=== PATIENT | female | born 2005 | race Caucasian/White ===

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

== ENCOUNTER 2023-08-16 16:41 | Outpatient (CLI) | payer OTHER, SELFPAY ==
--- OUTSIDE RECORDS SUMMARY | 2023-08-16 16:46 | XMS_ITS | Encounter Summary ---
Author Name Unknown Organization [place] Address [address] [place] [address]. [place] [address] Care Team Providers Care Hourly Associate Name Role Phone Marlys Avila MD Primary Care Provider Renan Miguel PA-C Unavailable + [phone] Keke Jackson OD Unavailable [phone] Reason for Visit * Reason Comments Medication Refill Encounter Details Date Type Department Care Team (Late st Contact Info) Description 01/08/2021 Refill [facility] [address] [place] [address] Renan Miguel PA-C [address] [place] [address] Medication Refill Social History Tobacco Use Types Packs/Day Years Used Date Smoking Tobacco: Never Smokeless Tobacco: Never Alcohol Use Standard Drinks/Week Comments No 0 (1 standard drink = 0.6 oz pur e alcohol) PHQ-2 Answer Date Recorded PHQ-2 Score 1 12/12/2020 Sex and Gender Information Value Date Recorded Sex Assigned at Female 03/27/2020 10:03 AM CDT Gender Identity Female 03/27/2020 10:03 AM CDT Sexual Orientation Bisexual 12/12/2020 10 :44 AM CDT Sexual Orientation Don't know 12/12/2020 10 :44 AM CDT COVID-19 Exposure Response Date Recorded In the last month, have you been in contact with someone who was confirmed or suspected to have Coronavirus / COVID-19? No / Unsure 01/02/2021 1:59 PM CDT documented as of this encounter Plan of Treatment Not on file documented as of this encounter Visit Diagnoses Diagnosis POLLY (generalized anxiety disorder) Generalized anxiety disorder documented in this encounter Additional Health Concerns Assessment Noted Time PHQ-9 Depression Total Score: 5 12/13/19 21 12:05 PM CDT documented as of this encounter Care Teams Hourly Associate Relationship Specialty Start Date End Date Marlys Avila MD PCP - General Family Practice 03/06/16 Renan Miguel PA-C [address] [address] [address] Assigned PCP 12/29/20 Keke Jackson OD [address] [facility] EFFIE MICHEL [address] Assigned Surgical Provider 06/08/21 documented as of this encounter
--- OUTSIDE RECORDS SUMMARY | 2023-08-16 16:46 | XMS_ITS | Encounter Summary ---
Author Name Unknown Organization [facility] Address [address] [place] [address] Care Team Providers Care Cost Control Supervisor Name Role Phone Marlys Avila MD Primary Care Provider Marlys Avila MD Unavailable [phone] Renan Miguel PA-C Unavailable + [phone] Keek Jackson OD Unavailable [phone] Encounter Details Date Type Department Care Team (Late st Contact Info) Description 11/11/2020 [facility] [place] [facility] Medical Advice [address] [address] Joe Roberto Social History Tobacco Use Types Packs/Day Years Used Date Smoking Tobacco: Never Smokeless Tobacco: Never Alcohol Use Standard Drinks/Week Comments No 0 (1 standard drink = 0.6 oz pur e alcohol) PHQ-2 Answer Date Recorded PHQ-2 Score 0 10/14/2020 Sex and Gender Information Value Date Recorded Sex Assigned at Female 03/27/2020 10:03 AM CDT Gender Identity Female 03/27/2020 10:03 AM CDT Sexual Orientation Bisexual 12/12/2020 10 :44 AM CDT Sexual Orientation Don't know 12/12/2020 10 :44 AM CDT documented as of this encounter Plan of Treatment Not on file documented as of this encounter Visit Diagnoses Not on filedocumented in this encounter Additional Health Concerns Assessment Noted Time PHQ-9 Depression Total Score: 3 10/15/19 21 12:09 PM CDT documented as of this encounter Care Teams Cost Control Supervisor Relationship Specialty Start Date End Date Marlys Avila MD PCP - General Family Practice 03/06/16 [place] [address] [address] [address] Assigned PCP 12/31/19 12/28/20 Renan Miguel PA-C [address] [address] [address] Assigned PCP 12/29/20 Keke Jackson OD [address] [facility] EFFIE MICHEL [address] Assigned Surgical Provider 06/08/21 documented as of this encounter
--- OUTSIDE RECORDS SUMMARY | 2023-08-16 16:46 | XMS_ITS | Encounter Summary ---
Author Name Unknown Organization [place] Address [address] [place] [address]. [place] [address] Care Team Providers Care Er Physician Name Role Phone Marlys Avila MD Primary Care Provider Marlys Avila MD Unavailable [phone] Renan Miguel PA-C Unavailable + [phone] Keke Jackson OD Unavailable [phone] Reason for Visit * Reason Onset Date Comments Medication Request 07/02/2020 Encounter Details Date Type Department Care Team (Late st Contact Info) Description 07/02/2020 [facility] Medical Advice [address] [place] [id number] Irene Shepherd PA-C Medication Request Social History Tobacco Use Types Packs/Day Years Used Date Smoking Tobacco: Never Smokeless Tobacco: Never Alcohol Use Standard Drinks/Week Comments No 0 (1 standard drink = 0.6 oz pur e alcohol) PHQ-2 Answer Date Recorded PHQ-2 Score 2 07/04/2020 Sex and Gender Information Value Date Recorded [...] or suspected to have Coronavirus / COVID-19? Yes 07/04/2020 10:09 AM PRINTED CIRCUIT BOARD PANELS DEBURRER documented as of this encounter Miscellaneous Notes * Telephone Encounter - Tequila Sweet CMA - 07/02/2020 12:17 PM PRINTED CIRCUIT BOARD PANELS DEBURRER Spoke with patient mother. Mother aware that Irene Shepherd hasn't prescribed Hydroxyzine and that the pharmacy has been notified that Renan Miguel PA-C had prescribed this medication. Patients mother will reach out to Renan Miguel PA-C. Tequila Jones MA TED CIRCUIT BOARD PANELS DEBURRER * Telephone Encounter - Dionna Fierro - 07/02/2020 11:27 AM CST Dad calling again to request hydroxyzine as patient is now out of pills. [facility] #[id number] [place]. Thank you, Dionna Fierro, [facility] TED CIRCUIT BOARD PANELS DEBURRER documented in this encounter Plan of Treatment Not on file documented as of this encounter Visit Diagnoses Not on filedocumented in this encounter Additional Health Concerns Assessment Noted Time PHQ-9 Depression Total Score: 7 06/10/20 20 10:05 AM PRINTED CIRCUIT BOARD PANELS DEBURRER documented as of this encounter Care Teams Er Physician Relationship Specialty Start Date End Date Marlys Avila MD PCP - General Family Practice 03/06/16 [place] [address] [address] [address] Assigned PCP 12/31/19 12/28/20 Renan Miguel PA-C [address] [address] [address] Assigned PCP 12/29/20 Keke Jackson OD [address] [facility] EFFIE MICHEL [address] Assigned Surgical Provider 06/08/21 documented as of this encounter
--- OUTSIDE RECORDS SUMMARY | 2023-08-16 16:46 | XMS_ITS | Encounter Summary ---
Author Name Unknown Organization [facility] Address [address] [place] [address] Care Team Providers Care Computer Applications Developer Name Role Phone Marlys Avila MD Primary Care Provider Marlys Avila MD Unavailable [phone] Renan Miguel PA-C Unavailable + [phone] Keke Jackson OD Unavailable [phone] Encounter Details Date Type Department Care Team (Late st Contact Info) Description 07/04/2020 [facility] Medical Advice [address] [address] Lu Hayward LPN Social History Tobacco Use Types Packs/Day Years [...] Coronavirus / COVID-19? Yes 07/04/2020 10:09 AM BRAKE LINING FINISHER ASBESTOS documented as of this encounter Plan of Treatment Not on file documented as of this encounter Visit Diagnoses Not on filedocumented in this encounter Additional Health Concerns Assessment Noted Time PHQ-9 Depression Total Score: 7 07/04/20 20 10:14 AM BRAKE LINING FINISHER ASBESTOS documented as of this encounter Care Teams Computer Applications Developer Relationship Specialty Start Date End Date Marlys Avila MD PCP - General Family Practice 03/06/16 [place] [address] [address] [address] Assigned PCP 12/31/19 12/28/20 Renan Miguel PA-C [address] [address] [address] Assigned PCP 12/29/20 Keke Jackson OD [address] [facility] EFFIE MICHEL [address] Assigned Surgical Provider 06/08/21 documented as of this encounter
--- OUTSIDE RECORDS SUMMARY | 2023-08-16 16:46 | XMS_ITS | Clinical Summary ---
Author Name Unknown Organization [place] Address [address] [place] [address] Care Team Providers Care Natural Resources Manager Name Role Phone Marlys Avila MD Primary Care Provider Renan Miguel PA-C Unavailable + [phone] Allergies No known active allergies Medications Medication Sig Dispensed Refills Start Date End Date Status hydrOXYzine (ATARAX) 25 MG tabletIndications: POLLY (generalized anxiety disorder) TAKE 1 TABLET(25 MG) BY MOUTH THREE TIMES DAILY NEEDED FOR ANXIETY 180 tablet 4 06/05/2021 Active ondansetron (ZOFRAN) 4 MG tabletIndications: Situational anxiety Take 1 tablet (4 mg) by mouth 3 times daily as needed for nausea 30 tablet 1 06/05/2021 Active propranolol (INDERAL) 10 MG tabletIndications: Situational anxiety Take 10-20mg approx 20-30 minutes before anticipated test or performance that may cause anxiety 30 tablet 1 06/05/2021 Active Active Problems No known active problems Immunizations Name Administration Dates Next Due COVID-19 MONOVALENT 12+ (Pfizer) 11/18/2020,10/17 HEPATITIS A (PEDS 12M-18Y) 06/05/2021,01/25/2020 HIB (PRP-T) 01/07/2006 HPV9 06/05/2021,01/02/2021,01/25/2020 Hepatitis B, Peds 06/05/2021,01/25/2020 Historical DTP/aP 04/07/2007,01/07/2006 Influenza Vaccine >6 months,quad, PF 06/05/2021 MMR 01/02/2021,01/25/2020 Meningococcal ACWY (Menactra??) 01/02/2021,03/06 Poliovirus, inactivated (IPV) 01/25/2020, 007,01/07/2006 TDAP Vaccine (Adacel) 03/06/2016 Varicella Pt Report Hx of Va ricella/Chicken Pox 07/19/2006 Family History Medical History Relation Comments Depression Maternal Grandfather Other Cancer Maternal Grandmother bladder Substance Abuse Maternal Grandmother Alcohol Depression Mother Substance Abuse Other Drugs/ alcohol Glaucoma No family hx of Macular Degeneration No family hx of Relation Status Comments Father Alive Maternal Grandfather Maternal Grandmother Alive Mother Alive Other Sister Alive Social History Tobacco Use Types Packs/Day Years Used Date Smoking Tobacco: Never Smokeless Tobacco: Never Alcohol Use Standard Drinks/Week Comments No 0 (1 standard drink = 0.6 oz pur e alcohol) PHQ-2 Answer Date Recorded PHQ-2 Score 1 06/05/2021 Adolescent Education Answer Date Record ed Getting School Help Needed Not on file 04/09 Sex and Gender Information Value Date Recorded Sex Assigned at Female 03/27/2020 10:03 AM CDT Gender Identity Female 03/27/2020 10:03 AM CDT Sexual Orientation Bisexual 12/12/2020 10 :44 AM CDT Sexual Orientation Don't know 12/12/2020 10 :44 AM CDT Last Filed Vital Signs Vital Sign Reading Time Taken Comments Blood Pressure 114/72 06/05/2021 3:09 PM SERVICE ADVOCATE CONTACT Pulse 103 06/05/2021 3:09 PM SERVICE ADVOCATE CONTACT Temperature 36.4 ??C (97.5 ??F) 06/05/2021 3:09 PM CS T Respiratory Rate 14 06/05/2021 3:09 PM SERVICE ADVOCATE CONTACT Oxygen Saturation 98% 06/05/2021 3:09 PM SERVICE ADVOCATE CONTACT Inhaled Oxygen Concentration - - Weight 75.6 kg (166 lb 9.6 oz) 06/05/2021 3:09 P M SERVICE ADVOCATE CONTACT Height 177.8 cm (5' 10) 06/05/2021 3:09 PM SERVICE ADVOCATE CONTACT Body Mass Index 23.9 06/05/2021 3:09 PM SERVICE ADVOCATE CONTACT Body Mass Index Percentile 77.06% 06/05/2021 3:0 9 PM SERVICE ADVOCATE CONTACT Growth Chart: CDC (Girls, 2- 20 Years) Plan of Treatment Health Maintenance Due Date Last Done Comments ADVANCE CARE PLANNING 2003 VARICELLA IMMUNIZATION (2 of 2 - 2-dose childhood series) 2007 07/19/2006 HIV SCREENING 12/05/2018 ANNUAL REVIEW OF HM ORDERS 02/08/2021 02/09/2020 YEARLY PREVENTIVE VISIT 02/08/2021 02/09/2020, 03/06 HEPATITIS B IMMUNIZATION (3 of 3 - 3-dose series) 07/31/2021 06/05/2021, 01/25/2020 HEPATITIS C SCREENING 12/05/2021 PHQ-2 (once per calendar year) 2022 06/05/2021, 06/05/2021, 12/12/2020, Additional history exists COVID-19 Vaccine ( - season) 2023 11/18/2020, 10/28/2020 INFLUENZA VACCINE (#1) 2023 06/05/2021 DTAP/TDAP/TD IMMUNIZATION (4 - Td or Tdap) 03/06/2026 03/06/2016, 04/07/2007, 01/07/2006 HIB IMMUNIZATION Completed 01/07/2006 IPV IMMUNIZATION Completed 01/25/2020, , 01/07/2006 MENINGITIS IMMUNIZATION Completed 01/02/2021, 03/06 HPV IMMUNIZATION Completed 06/05/2021, , 01/25/2020 Pneumococcal Vaccine: Pediatrics (0 to 5 Years) and At-Risk Patients (6 to 64 Years) Aged Out No longer eligible based on patient's age to complete this topic RSV MONOCLONAL ANTIBODY Aged Out No l onger eligible based on patient's age to complete this topic Care Teams Natural Resources Manager Relationship Specialty Start Date End Date Marlys Avila MD PCP - General Family Practice 03/06/16 Renan Miguel PA-C [address] [address] [address] Assigned PCP 12/29/20
--- OUTSIDE RECORDS SUMMARY | 2023-08-16 16:46 | XMS_ITS | Encounter Summary ---
Author Name Unknown Organization [facility] Address [address] [place] [address]. [place] [address] Care Team Providers Care Catering Truck Operator Name Role Phone Marlys Avila MD Primary Care Provider Renan Miguel PA-C Unavailable [phone] Keke Jackson OD Unavailable [phone] Reason for Visit * Reason Comments Medication Refill Encounter Details Date Type Department Care Team (Late st Contact Info) Description 08/23/2021 Refill [facility] [address] [place] [address] Renan Miguel PA-C [address] [place] [address] Medication Refill Social History Tobacco Use Types Packs/Day Years Used Date Smoking Tobacco: Never Smokeless Tobacco: Never Alcohol Use Standard Drinks/Week Comments No 0 (1 standard drink = 0.6 oz pur e alcohol) PHQ-2 Answer Date Recorded PHQ-2 Score 1 06/05/2021 Sex and Gender Information Value Date Recorded Sex Assigned at Female 03/27/2020 10:03 AM CDT Gender Identity Female 03/27/2020 10:03 AM CDT Sexual Orientation Bisexual 12/12/2020 10 :44 AM CDT Sexual Orientation Don't know 12/12/2020 10 :44 AM CDT documented as of this encounter Miscellaneous Notes * Telephone Encounter - Karishma Swain RN - 08/26/2021 9:20 AM CASH MANAGEMENT COORDINATOR Received a refill request for hydroxyzine - refills sent to the same pharmacy on 06/05/21 - should still have some. MANAGEMENT COORDINATOR documented in this encounter Plan of Treatment Not on file documented as of this encounter Visit Diagnoses Diagnosis POLLY (generalized anxiety disorder) Generalized anxiety disorder documented in this encounter Additional Health Concerns Assessment Noted Time PHQ-9 Depression Total Score: 6 06/06/20 7:02 AM CASH MANAGEMENT COORDINATOR documented as of this encounter Care Teams Catering Truck Operator Relationship Specialty Start Date End Date Marlys Avila MD PCP - General Family Practice 03/06/16 Renan Miguel PA-C [address] [address] [address] Assigned PCP 12/29/20 Keke Jackson OD [address] [facility] EFFIE MICHEL [address] Assigned Surgical Provider 06/08/21 documented as of this encounter
--- OUTSIDE RECORDS SUMMARY | 2023-08-16 16:46 | XMS_ITS | Referral Summary ---
Author Name Unknown Organization [facility] Address [address] [place] [address] Care Team Providers Care Stucco Worker Name Role Phone Marlys Avila MD Primary Care Provider Renan Miguel PA-C Unavailable + [phone] Allergies No known active allergies Medications Medication [...] Report Hx of Va ricella/Chicken Pox 07/19/2006 Social History Tobacco Use Types Packs/Day Years [...] Comments Blood Pressure 114/72 06/05/2021 3:09 PM ENROLLMENT CONSULTANT Pulse 103 06/05/2021 3:09 PM ENROLLMENT CONSULTANT Temperature 36.4 ??C (97.5 ??F) 06/05/2021 3:09 PM CS T Respiratory Rate 14 06/05/2021 3:09 PM ENROLLMENT CONSULTANT Oxygen Saturation 98% 06/05/2021 3:09 PM ENROLLMENT CONSULTANT Inhaled Oxygen Concentration - - Weight 75.6 kg (166 lb 9.6 oz) 06/05/2021 3:09 P M ENROLLMENT CONSULTANT Height 177.8 cm (5' 10) 06/05/2021 3:09 PM ENROLLMENT CONSULTANT Body Mass Index 23.9 06/05/2021 3:09 PM ENROLLMENT CONSULTANT Body Mass Index Percentile 77.06% 06/05/2021 3:0 9 PM ENROLLMENT CONSULTANT Growth Chart: CDC (Girls, 2- 20 Years) Plan of Treatment Not on file Care Teams Stucco Worker Relationship Specialty Start Date End Date Marlys Avila MD PCP - General Family Practice 03/06/16 Renan Miguel PA-C [address] [place] [address] Assigned PCP 12/29/20
--- OUTSIDE RECORDS SUMMARY | 2023-08-16 16:46 | XMS_ITS | Encounter Summary ---
Author Name Unknown Organization [facility] Address [address] [place] [address] Care Team Providers Care Afternoon Babysitter Name Role Phone Marlys Avila MD Primary Care Provider Marlys Avila MD Unavailable [phone] Renan Miguel PA-C Unavailable + [phone] Keke Jackson OD Unavailable [phone] Encounter Details Date Type Department Care Team (Late st Contact Info) Description 11/06/2020 [facility] Medical Advice [facility] [address] [place] [address] Tangela Garsia [address] [place], [place] [id number] Social History Tobacco Use Types Packs/Day Years [...] documented as of this encounter Care Teams Afternoon Babysitter Relationship Specialty Start Date End Date Marlys Avila MD PCP - General Family Practice 03/06/16 [place] [address] [address] [address] Assigned PCP 12/31/19 12/28/20 Renan Miguel PA-C [address] [address] [address] Assigned PCP 12/29/20 Keke Jackson OD [address]305 [facility] EFFIE MICHEL [address] Assigned Surgical Provider 06/08/21 documented as of this encounter
--- OUTSIDE RECORDS SUMMARY | 2023-08-16 16:46 | XMS_ITS | Encounter Summary ---
Author Name Unknown Organization [facility] Address [address] [place] [address]. [place] [address] Care Team Providers Care Landscape Supervisor Name Role Phone Marlys Avila MD Primary Care Provider Marlys Avila MD Unavailable [phone] Renan Miguel PA-C Unavailable + [phone] Keke Jackson OD Unavailable [phone] Reason for Visit * Reason Onset Date Comments Refill Request 07/01/2020 Encounter Details Date Type Department Care Team (Late st Contact Info) Description 07/01/2020 My[facility] Refill [address] [id number] Irene Shepherd PA-C Refill Request Social History Tobacco Use Types Packs/Day [...] Coronavirus / COVID-19? Yes 07/04/2020 10:09 AM SQUAD SERGEANT documented as of this encounter Plan of Treatment Not on file documented as of this encounter Visit Diagnoses Diagnosis Situational anxiety Other anxiety states documented in this encounter Additional Health Concerns Assessment Noted Time PHQ-9 Depression Total Score: 7 06/10/20 20 10:05 AM SQUAD SERGEANT documented as of this encounter Care Teams Landscape Supervisor Relationship Specialty Start Date End Date Marlys Avila MD PCP - General Family Practice 03/06/16 [place] [address] [address] [address] Assigned PCP 12/31/19 12/28/20 Renan Miguel PA-C [address] [address] [address] Assigned PCP 12/29/20 Keke Jackson OD [address] [facility] EFFIE MICHEL [address] Assigned Surgical Provider 06/08/21 documented as of this encounter
--- OUTSIDE RECORDS SUMMARY | 2023-08-16 16:47 | XMS_ITS | Encounter Summary ---
Author Name Unknown Organization [facility] Address [address] [place] [address]. [place] [address] Care Team Providers Care Beef Cattle Grazier Name Role Phone Marlys Avila MD Primary Care Provider Marlys Avila MD Unavailable Renan Miguel PA-C Unavailable [phone] Keke Jackson OD Unavailable Encounter Details Date Type Department Care Team (Late st Contact Info) Description 06/10/2020 [facility] Medical Advice [address], [address] [place] [address] Lety Stearns, [facility] [employer]CR[employer] [address] [place] [address] Social History Tobacco Use Types Packs/Day Years Used Date Smoking Tobacco: Never Smokeless Tobacco: Never Alcohol Use Standard Drinks/Week Comments No 0 (1 standard drink = 0.6 oz pur e alcohol) PHQ-2 Answer Date Recorded PHQ-2 Score 3 06/10/2020 Sex and Gender Information Value Date Recorded Sex Assigned at Female 03/27/2020 10:03 AM CDT Gender Identity Female 03/27/2020 10:03 AM CDT Sexual Orientation Bisexual 12/12/2020 10 :44 AM CDT Sexual Orientation Don't know 12/12/2020 10 :44 AM CDT documented as of this encounter Miscellaneous Notes * Telephone Encounter - Lety Stearns APRN CNP - 06/10/2020 9:37 AM STENCIL SPRAYER I do not have an appt with her today. She has an appt with therapy Tangela Garsia. Please forward to the appropriate pool. Lety Stearns CONCRETE LAYER CIL SPRAYER documented in this encounter Plan of Treatment Not on file documented as of this encounter Visit Diagnoses Not on filedocumented in this encounter Additional Health Concerns Assessment Noted Time PHQ-9 Depression Total Score: 7 06/10/20 20 10:05 AM STENCIL SPRAYER documented as of this encounter Care Teams Beef Cattle Grazier Relationship Specialty Start Date End Date Marlys Avila MD PCP - General Family Practice 03/06/16 [place] [address] [address] [address] Assigned PCP 12/31/19 12/28/20 Renan Miguel PA-C [address] [address] [address] Assigned PCP 12/29/20 Keke Jackson OD [address] [facility] EFFIE MICHEL [address] Assigned Surgical Provider 06/08/21 documented as of this encounter
--- OUTSIDE RECORDS SUMMARY | 2023-08-16 16:47 | XMS_ITS | Encounter Summary ---
Author Name Unknown Organization [facility] Address [address] [place] [address]. [place] [address] Care Team Providers Care Organizational Development Director Name Role Phone Marlys Avila MD Primary Care Provider Aranza Lin Unavailable Unavailable Marlys Avila MD Unavailable [phone] Renan Miguel PA-C Unavailable + [phone] Keke Jackson OD Unavailable [phone] Encounter Details Date Type Department Care Team (Late st Contact Info) Description 01/15/[address], [address] [place] [address] [place] [address] [place] [address] Social History Tobacco Use Types Packs/Day Years Used Date Smoking Tobacco: Never Smokeless Tobacco: Never Alcohol Use Standard Drinks/Week Comments No 0 (1 standard drink = 0.6 oz pur e alcohol) PHQ-2 Answer Date Recorded PHQ-2 Score 2 01/19/2020 Sex and Gender Information Value Date Recorded [...] have Coronavirus / COVID-19? No / Unsure 01/18/2020 11:15 AM CDT documented as of this encounter Miscellaneous Notes * Telephone Encounter - Naty Duff RN - 01/15/2020 4:47 PM CDT Mom is concerned there may be some anxiety issues that are causing symptoms as well. Pt is pulling away from peers, tearful and having issues at work. Mom is not concerned for her safety at this time. She is scheduled for video visit with at this as mom feels she would do better with a female and both PCP and AP are out in Naty Duff RN * Telephone Encounter - Shefali Brown - 01/15/2020 4:27 PM CDT Pts mother want Naty to know that she returned her call. Please call back at [phone] Shefali Brown Patient Package Worker documented in this encounter Plan of Treatment Not on file documented as of this encounter Visit Diagnoses Not on filedocumented in this encounter Additional Health Concerns Assessment Noted Time PHQ-9 Depression Total Score: 5 12/28/19 20 1:27 PM CDT documented as of this encounter Care Teams Organizational Development Director Relationship Specialty Start Date End Date Marlys Avila MD PCP - General Family Practice 03/06/16 Aranza Lin Personal Advocate & Liaison (PAL) Family Practice 12/28/19 02/05/20 [place] [address] [place] [address] Assigned PCP 12/31/19 12/28/20 Renan Miguel PA-C [address] [address] [address] Assigned PCP 12/29/20 Keke Jackson OD [address]305 [facility] EFFIE MICHEL [address] Assigned Surgical Provider 06/08/21 documented as of this encounter
--- OUTSIDE RECORDS SUMMARY | 2023-08-16 16:47 | XMS_ITS | Encounter Summary ---
Author Name Unknown Organization [facility] Address [address] [place] [address] Care Team Providers Care Senior Regulatory Affairs Specialist Name Role Phone Marlys Avila MD Primary Care Provider Marlys Avila MD Unavailable [phone] Renan Miguel PA-C Unavailable + [phone] Keke Jackson OD Unavailable [phone] Encounter Details Date Type Department Care Team (Late st Contact Info) Description 04/18/2020 [facility] Extended Documentation [facility] [address] [place] [id number] Tangela Garsia [address] [place], [place] [id number] Social History Tobacco Use Types Packs/Day Years Used Date Smoking Tobacco: Never Smokeless Tobacco: Never Alcohol Use Standard Drinks/Week Comments No 0 (1 standard drink = 0.6 oz pur e alcohol) PHQ-2 Answer Date Recorded PHQ-2 Score 0 04/18/2020 Sex and Gender Information Value Date Recorded [...] Assessment Noted Time PHQ-9 Depression Total Score: 4 04/18/20 20 8:15 AM CDT documented as of this encounter Care Teams Senior Regulatory Affairs Specialist Relationship Specialty Start Date End Date Marlys Avila MD PCP - General Family Practice 03/06/16 [place] [address] [address] [id number] Assigned PCP 12/31/19 12/28/20 Renan Miguel PA-C [address] [address] [address] Assigned PCP 12/29/20 Keke Jackson OD [address] [facility] EFFIE MICHEL [id number] Assigned Surgical Provider 06/08/21 documented as of this encounter
--- OUTSIDE RECORDS SUMMARY | 2023-08-16 16:47 | XMS_ITS | Encounter Summary ---
Author Name Unknown Organization [facility] Address [address] [place] [address]. [place] [address] Care Team Providers Care Nut Sifter Name Role Phone Marlys Avila MD Primary Care Provider Marlys Avila MD Unavailable Renan Miguel PA-C Unavailable [phone] Keke Jackson OD Unavailable [phone] Encounter Details Date Type Department Care Team (Late st Contact Info) Description 06/09/2020 [facility] [address], [address] [place] [address] Lety Stearns, LOGISTICS AND PLANNING MANAGER [place] [address] [place] [address] Social History Tobacco Use Types [...] documented as of this encounter Care Teams Nut Sifter Relationship Specialty Start Date End Date Marlys Avila MD PCP - General Family Practice 03/06/16 [place] [address] [address] [address] Assigned PCP 12/31/19 12/28/20 Renan Miguel PA-C [address] [address] [address] Assigned PCP 12/29/20 Keke Jackson OD [address] [facility] EFFIE MICHEL [address] Assigned Surgical Provider 06/08/21 documented as of this encounter
--- OUTSIDE RECORDS SUMMARY | 2023-08-16 16:47 | XMS_ITS | Encounter Summary ---
Author Name Unknown Organization [facility] Address [address] [place] [address] Care Team Providers Care Mushroom Grower Name Role Phone Marlys Avila MD Primary Care Provider Marlys Avila MD Unavailable [phone] Renan Miguel PA-C Unavailable + [phone] Keke Jackson OD Unavailable [phone] Encounter Details Date Type Department Care Team (Late st Contact Info) Description 06/04/2020 [facility] Adv[facility] [address] [place] [phone] Tangela Garsia [address] [place], [place] [id number] Social History Tobacco Use Types Packs/Day Years [...] documented as of this encounter Care Teams Mushroom Grower Relationship Specialty Start Date End Date Marlys Avila MD PCP - General Family Practice 03/06/16 [place] [address] [address] [address] Assigned PCP 12/31/19 12/28/20 Renan Miguel PA-C [address] [address] [address] Assigned PCP 12/29/20 Keke Jackson OD [address] [facility] EFFIE MICHEL [id number] Assigned Surgical Provider 06/08/21 documented as of this encounter
--- OUTSIDE RECORDS SUMMARY | 2023-08-16 16:47 | XMS_ITS | Encounter Summary ---
Author Name Unknown Organization [facility] Address [address] [place] [address]. [place] [address] Care Team Providers Care Ruffling Hemmer Automatic Name Role Phone Marlys Avila MD Primary Care Provider Marlys Avila MD Unavailable [phone] Renan Miguel PA-C Unavailable [phone] Keke Jackson OD Unavailable Encounter Details Date Type Department Care Team (Late st Contact Info) Description 06/03/2020 [facility] [address], [address] [place] [address] Lety Stearns, BLANKBOOK FORWARDER BOILER REPAIRMAN [address] [place] [address] Social History Tobacco Use Types [...] * Telephone Encounter - Lety Stearns APRN BOILER REPAIRMAN - 06/03/2020 3:40 PM CORPORATE WELLNESS COORDINATOR Did not have an appt with me today. Looks like this should have gone to Tangela Garsia. Lety Stearns BOILER REPAIRMAN ORATE WELLNESS COORDINATOR documented in this encounter Plan of Treatment Not on file documented as of this encounter Visit Diagnoses Not on filedocumented in this encounter Additional Health Concerns Assessment Noted Time PHQ-9 Depression Total Score: 4 04/18/20 20 8:15 AM CDT documented as of this encounter Care Teams Ruffling Hemmer Automatic Relationship Specialty Start Date End Date Marlys Avila MD PCP - General Family Practice 03/06/16 [place] [address] [address] [address] Assigned PCP 12/31/19 12/28/20 Renan Miguel PA-C [address] [address] [id number] Assigned PCP 12/29/20 Keke Jackson OD [address] [facility] EFFIE MICHEL [id number] Assigned Surgical Provider 06/08/21 documented as of this encounter
== END 2023-08-16 16:42 | disposition home or self-care (01) ==
PROVIDERS: PCP Emergency Medicine; Visit Provider Physician Assistant Medical
DX: M25.50 Pain in unspecified joint (principal)
CPT/HCPCS: 82306; 84443; 86039; 86140; 86200; 86258; 86364; 86431; 86618